=== PATIENT | female | born 1995 | race Caucasian/White ===

== ENCOUNTER 2016-06-06 13:54 | Emergency (ER) | payer SELFPAY ==
--- NOTE | 2016-06-06 14:48 | ER Document Report ---
HPI - HPI Patient complains to provider of: left ear pain Pain Level: 4 Context: 21 yo female c/o left ear pain x 2 days. no fever. Associated Symptoms: None Exacerbated by: Denies Relieved by: Denies Similar symptoms previously: No Recently seen / treated by doctor: No - REPRODUCTIVE Reproductive: DENIES: : - DERM Skin Color: Normal Past Medical History - Social History Smoking Status: Never Smoker Frequency of alcohol use: None Drug Abuse: None Family History: Reviewed & Not Pertinent Patient has suicidal ideation: No Patient has homicidal ideation: No Pulmonary Medical History: Reports: Hx Asthma Renal/ Medical History: Denies: Hx Peritoneal Dialysis - Immunizations Immunizations up to date: Yes Hx Diphtheria, Pertussis, Tetanus Vaccination: Yes Vertical Provider Document - CONSTITUTIONAL Agree With Documented VS: Yes Exam Limitations: No Limitations - INFECTION CONTROL TRAVEL OUTSIDE OF THE [place] IN LAST 30 DAYS: No - HEENT HEENT: Atraumatic, PERRLA. negative: Tympanic Membrane Red - + thick white exudate in left EAC. + painful pinna manipulation. no pre/post auricular tenderness. no mastoid tenderness - NECK Neck: Normal Inspection, Supple - RESPIRATORY Respiratory: Breath Sounds Normal, No Respiratory Distress O2 Sat by Pulse Oximetry: 99 - CARDIOVASCULAR Cardiovascular: Regular Rate, Regular Rhythm - NEURO Level of Consciousness: Awake, Alert - DERM Integumentary: Warm, Dry Course - Re-evaluation Re-evalutation: 06/06/16 14:52 - Vital Signs Vital signs: Temp Pulse Resp BP Pulse Ox 98.2 F 69 16 115/68 99 06/06/16 13:58 06/06/16 13:58 06/06/16 13:58 06/06/16 13:58 06/06/16 13:58 Discharge - Discharge Clinical Impression: Otitis externa Qualifiers: Otitis externa type: unspecified type Laterality: left Chronicity: acute Qualified Code(s): H60.502 - Unspecified acute noninfective otitis externa, left ear Disposition: HOME, SELF-CARE Instructions: Otitis Externa ([facility]), Use of Ear Drops ([facility]), Oral Narcotic Medication ([facility]) Additional Instructions: You have an external ear infection Take meds as prescribed Keep ear completely dry x 7 days Prescriptions: Neomy Sulf/Polymyx B Sulf/Hc [Cortisporin Otic Susp] 4 drop LFT_EAR Q4 #1 bottle Oxycodone HCl/Acetaminophen [Percocet 5-325 mg Tablet] 1 - 2 tab PO ASDIR PRN # 10 tablet PRN Reason: Forms: Return to Work
[2016-06-06 15:28] VITALS: BP 110/70
== END 2016-06-06 15:24 | disposition home or self-care (01) ==
LOC: ER 13:54
DX: H60.502 Unspecified acute noninfective otitis externa, left ear (principal); H92.02 Otalgia, left ear
CPT/HCPCS: 99282

== ENCOUNTER 2016-11-09 19:16 | Emergency (ER) | payer SELFPAY ==
[2016-11-09] MEDS ORDERED: METOCLOPRAMIDE HCL INJ/PF 10 MG/2 ML SDV IV ONE (20:33)
--- NOTE | 2016-11-09 20:34 | ER Document Report ---
ED Medical Screen (RME) - General Chief Complaint: Nausea/Vomiting Stated Complaint: VOMITING Time Seen by Provider: 11/09/16 20:32 Notes: Patient states she is about 9 weeks but has not yet seen an [employer] TE[employer]. She denies any vaginal bleeding or discharge. She does have some diffuse abdominal pain as well as nausea vomiting and low back pain. TRAVEL OUTSIDE OF THE [place] IN LAST 30 DAYS: No - Related Data Allergies/Adverse Reactions: Penicillins Allergy (Intermediate, Verified 11/09/16 20:25) GI upset Home Medications: Current Home Medications No Home Medications 11/09/16 [History] Past Medical History - Social History Chew tobacco use (# tins/day): No Frequency of alcohol use: None Drug Abuse: None Pulmonary Medical History: Reports: Hx Asthma Renal/ Medical History: Denies: Hx Peritoneal Dialysis Surgical Hx: Negative - Immunizations Immunizations up to date: Yes Hx Diphtheria, Pertussis, Tetanus Vaccination: Yes
[2016-11-09 20:48] LABS: APPEARANCE,URINE CLOUDY; BILIRUBIN,URINE NEGATIVE (NEGATIVE); GLUCOSE, URINE NEGATIVE (NEGATIVE); KETONES,URINE 80 mg/dL (NEGATIVE); LEUKOCYTE ESTERASE,URINE LARGE (NEGATIVE); NITRITE,URINE NEGATIVE (NEGATIVE); PROTEIN,URINE 30 mg/dL (NEGATIVE); URINE SPECIFIC GRAVITY 1.027; UROBILINOGEN,URINE NEGATIVE mg/dL (<2.0)
[2016-11-09] MEDS: NORMAL SALINE 1000 ML 1,000 ML IV PRN ×2 (20:50→23:52)
[2016-11-09 21:06] LABS: ABSOLUTE LYMPHOCYTES (AUTO) 1.2 10^3/uL (0.5-4.7); ABSOLUTE MONOCYTES (AUTO) 0.4 10^3/uL (0.1-1.4); ABSOLUTE NEUT (AUTO) 8.4 10^3/uL (1.7-8.2); BASOPHILS % (AUTO) 0.1 % (0-2); EOSINOPHILS % (AUTO) 0.2 % (0-6); HEMATOCRIT 38.8 % (36.0-47.0); HEMOGLOBIN 13.3 g/dL (12.0-15.5); HGB HCT DIFFERENCE 1.1; LYMPHOCYTES % (AUTO) 11.8 % (13-45); MEAN CORPUSCULAR HEMOGLOBIN 28.9 pg (27.0-33.4); MEAN CORPUSCULAR HGB CONC 34.2 g/dL (32.0-36.0); MEAN CORPUSCULAR VOLUME 84 fl (80-97); MONOCYTES % (AUTO) 4.5 % (3-13); RED CELL DISTRIBUTION WIDTH 14.4 % (11.5-14.0); SEGMENTED NEUTROPHILS % (AUTO) 83.4 % (42-78)
[2016-11-09 21:35] LABS: ALANINE AMINOTRANSFERASE 34 U/L (9-52); ALKALINE PHOSPHATASE 58 U/L (38-126); ANION GAP 10 (5-19); ASPARTATE AMINO TRANSFERASE 22 U/L (14-36); BILIRUBIN,DIRECT 0.3 mg/dL (0.0-0.4); BILIRUBIN,TOTAL 0.6 mg/dL (0.2-1.3); BLOOD UREA NITROGEN 5 mg/dL (7-20); CALCIUM 9.8 mg/dL (8.4-10.2); CARBON DIOXIDE 21 mmol/L (22-30); CHLORIDE 107 mmol/L (98-107); CREATININE RESULT 0.48 mg/dL (0.52-1.25); GLUCOSE 79 mg/dL (75-110); SODIUM 137.8 mmol/L (137-145); TOTAL PROTEIN 6.9 g/dL (6.3-8.2)
[2016-11-09] MEDS ORDERED: NORMAL SALINE 1000 ML 1,000 ML IV ONE (23:12)
[2016-11-09] MEDS ORDERED: CEFTRIAXONE INJ 1000 MG VIAL IV ONE (23:12)
--- NOTE | 2016-11-09 23:13 | RADIOLOGY REPORT (SQ) ---
EXAM DESCRIPTION: U/S OB TRANSVAGINAL W/O DOP COMPLETED DATE/TIME: 11/09/2016 10:29 pm REASON FOR STUDY: preg/pain COMPARISON: None. TECHNIQUE: Transvaginal static and realtime grayscale images acquired of the pelvis. Additional marcela cted spectral and color Doppler images recorded. All images stored on PACs. bHCG: Not available LIMITATIONS: None. FINDINGS: FETUS: Living intrauterine . EGA: 8 weeks 5 days CHEN: 06/16/2017 FHR: 168 beats per minute. SUBCHORIONIC BLEED: No SIZE OF BLEED: Not applicable. UTERUS: No masses. No anomalies. CERVICAL LENGTH: 3.6 sign Closed. RIGHT ADNEXA: Right ovary was not visualized. LEFT ADNEXA: Left ovary was not visualized. FREE FLUID: None. OTHER: No other significant finding. IMPRESSION: LIVING INTRAUTERINE . EGA 8 weeks 5 days Trimester of : First - 0 to 13 weeks. TECHNICAL DOCUMENTATION: JOB ID: [id number] [employer]- All Rights Reserved
[2016-11-10] MEDS ORDERED: METOCLOPRAMIDE HCL INJ/PF 10 MG/2 ML SDV IV ONE (00:12)
--- NOTE | 2016-11-10 01:10 | ER Document Report ---
ED General - General Chief Complaint: Nausea/Vomiting Stated Complaint: VOMITING Time Seen by Provider: 11/09/16 20:32 Notes: Patient is a 21-year-old female who presents with complaint of intractable vomiting. She is approximately 9 weeks . She had no fevers. No ultrasound of this as of yet. No dysuria. Normal vaginal discharge. She said very early in she had some spotting after sex but has not had any bleeding since. No other complaints at this time. No abdominal pain. TRAVEL OUTSIDE OF THE [place] IN LAST 30 DAYS: No - Related Data Allergies/Adverse Reactions: Penicillins Allergy (Intermediate, Verified 11/09/16 23:59) GI upset Past Medical History - Social History Smoking Status: Never Smoker Chew tobacco use (# tins/day): No Frequency of alcohol use: None Drug Abuse: None Family History: Reviewed & Not Pertinent Patient has suicidal ideation: No Patient has homicidal ideation: No Pulmonary Medical History: Reports: Hx Asthma Renal/ Medical History: Denies: Hx Peritoneal Dialysis Surgical Hx: Negative - Immunizations Immunizations up to date: Yes Hx Diphtheria, Pertussis, Tetanus Vaccination: Yes Review of Systems - Review of Systems Notes: My Normal Review Basic REVIEW OF SYSTEMS: CONSTITUTIONAL : Denies fever, chills, or sweats. Denies recent illness. RESPIRATORY: Denies cough, cold, or chest congestion. Denies shortness of breath, difficulty breathing, or wheezing. GASTROINTESTINAL: No abdominal pain. Some vomiting. GENITOURINARY: Denies difficulty urinating, painful urination, burning, frequency, or blood in urine. FEMALE GENITOURINARY: Denies vaginal bleeding, abnormal or irregular periods. LMP: Only . MUSCULOSKELETAL: Denies neck or back pain or joint pain or swelling. SKIN: Denies rash or skin lesions. NEUROLOGICAL: Denies altered mental status or loss of consciousness. Denies headache. Denies weakness or paralysis or loss of use of either side. Denies problems with gait or speech. Denies sensory or motor loss. ALL OTHER SYSTEMS REVIEWED AND NEGATIVE. Physical Exam - Vital signs Vitals: Temp Pulse Resp BP Pulse Ox 98.5 F 80 16 105/77 100 11/09/16 20:11 11/09/16 20:11 11/09/16 20:11 11/09/16 20:11 11/09/16 20:11 - Notes Notes: General Appearance: Well nourished, alert, cooperative, no acute distress, no obvious discomfort. Well-appearing. Vitals: reviewed, See vital signs table. Head: no swelling or tenderness to the head Eyes: PERRL, EOMI, Conjuctiva clear Mouth: No decreasd moisture Neck: Supple, no neck tenderness, No thyromegaly Lungs: No wheezing, No rales, No rhonci, No accessory muscle use, good air exchange bilaterally. Heart: Normal rate, Regular rythm, No murmur, no rub Abdomen: Normal BS, soft, No rigidity, No producible abdominal tenderness to palpation, No guarding, no rebound, no abdominal masses, no organomegaly Extremities: strength 5/5 in all extremities, good pulses in all extremities, no swelling or tenderness in the extremities, no edema. Skin: warm, dry, appropriate color, no rash Neuro: speech clear, oriented x 3, normal affect, responds appropriately to questions. Course - Re-evaluation Re-evalutation: 11/10/16 05:54 Patient's nausea is much improved with the Reglan. I did give her 2 L of fluids. She feels improved. Her urinalysis does show evidence of a UTI. I will place on Macrobid. I did give her Rocephin here. I encouraged her return to ER if she has fevers, recurrent vomiting, or she feels unwell. I encouraged her follow-up closely with her deputy sheriff generalist/bailiff. Patient agrees with plan and will be discharged home. Dictation of this chart was performed using voice recognition software; therefore, there may be some unintended grammatical errors. - Vital Signs Vital signs: Temp Pulse Resp BP Pulse Ox 98.5 F 75 18 115/57 L 100 11/09/16 20:11 11/10/16 01:16 11/10/16 01:16 11/10/16 01:16 11/10/16 01:16 - Laboratory Result Diagrams: 11/09/16 20:50 11/09/16 20:50 Laboratory results interpreted by me: 11/09/16 11/09/16 11/09/16 20:12 20:50 20:50 RDW 14.4 H Seg Neutrophils % 83.4 H Lymphocytes % 11.8 L Absolute Neutrophils 8.4 H Carbon Dioxide 21 L BUN 5 L Creatinine 0.48 L Beta HCG, Quant 524864.00 H Urine Protein 30 H Urine Ketones 80 H Ur Leukocyte Esterase LARGE H Discharge - Discharge Clinical Impression: Hyperemesis gravidarum UTI (urinary tract infection) Qualifiers: Urinary tract infection type: site unspecified Hematuria presence: without hematuria Qualified Code(s): N39.0 - Urinary tract infection, site not specified Condition: Good Disposition: HOME, SELF-CARE Additional Instructions: Your urinalysis suggest that you have a mild urinary tract infection. Urinary tract infections and can cause your nausea vomiting to become worse. Please drink lots of clear liquids. Please follow with your deputy sheriff generalist/bailiff for close reevaluation. Please take antibiotics as prescribed. Please take the nausea medicine as prescribed. Please return to the ER if you have intractable vomiting despite the nausea medicine, fevers, or feel unwell. Prescriptions: Metoclopramide HCl [Reglan 10 mg Tablet] 1 tab PO ASDIR PRN #25 tablet PRN Reason: Nitrofurantoin/Nitrofuran Mac [Macrobid 100 mg Capsule] 1 tab PO BID #14 capsule Forms: Return to Work
[2016-11-10 01:19] VITALS: BP 115/57
== END 2016-11-10 01:19 | disposition home or self-care (01) ==
LOC: ER 19:16
DX: O23.41 Unspecified infection of urinary tract in pregnancy, first trimester (principal); O21.9 Vomiting of pregnancy, unspecified; Z3A.09 9 weeks gestation of pregnancy; Z88.0 Allergy status to penicillin
CPT/HCPCS: 96376; 99283; 96361; 96375; 96365; 36415; 84702; 85025; 80053; 81001; 76817; J2765 ×2; J0696; J7030

== ENCOUNTER 2016-11-18 12:35 | Emergency (ER) | payer SELFPAY ==
[2016-11-18] MEDS ORDERED: PROMETHAZINE HCL INJ 25 MG/1 ML VIAL IV ONE (13:20)
[2016-11-18] MEDS ORDERED: NORMAL SALINE 1000 ML 1,000 ML IV PRN (13:20)
--- NOTE | 2016-11-18 13:22 | ER Document Report ---
ED General - General Chief Complaint: Nausea/Vomiting Stated Complaint: VOMITING Time Seen by Provider: 11/18/16 13:20 Mode of Arrival: Ambulatory Information source: Patient Notes: 21-year-old female who is 10 weeks presents with complaints of nausea vomiting multiple times this morning. Patient notes she was here last week was given Reglan but was still nauseous. Patient denies any vaginal bleeding abdominal pain or any other concerns TRAVEL OUTSIDE OF THE [place] IN LAST 30 DAYS: No - HPI Onset: This morning Onset/Duration: Sudden Quality of pain: No pain Severity: Moderate Pain Level: Denies Associated symptoms: Nausea, Vomiting Exacerbated by: Denies Relieved by: Denies Similar symptoms previously: Yes Recently seen / treated by doctor: Yes - Related Data Allergies/Adverse Reactions: Penicillins Allergy (Intermediate, Verified 11/18/16 12:48) GI upset Past Medical History - Social History Smoking Status: Never Smoker Cigarette use (# per day): No Chew tobacco use (# tins/day): No Smoking Education Provided: No Frequency of alcohol use: None Drug Abuse: None Family History: Reviewed & Not Pertinent Pulmonary Medical History: Reports: Hx Asthma Renal/ Medical History: Denies: Hx Peritoneal Dialysis Surgical Hx: Negative - Immunizations Immunizations up to date: Yes Hx Diphtheria, Pertussis, Tetanus Vaccination: Yes Review of Systems - Review of Systems Notes: REVIEW OF SYSTEMS: CONSTITUTIONAL : Denies fever, chills, or sweats. Denies recent illness. EENT: Denies eye, ear, throat, or mouth pain or symptoms. Denies nasal or sinus congestion or discharge. Denies throat, tongue, or mouth swelling or difficulty swallowing. CARDIOVASCULAR: Denies chest pain. Denies palpitations or racing or irregular heart beat. Denies ankle edema. RESPIRATORY: Denies cough, cold, or chest congestion. Denies shortness of breath, difficulty breathing, or wheezing. GASTROINTESTINAL: Admits nausea vomiting GENITOURINARY: Denies difficulty urinating, painful urination, burning, frequency, blood in urine, or discharge. FEMALE GENITOURINARY: Denies vaginal bleeding, heavy or abnormal periods, irregular periods. Denies vaginal discharge or odor. MUSCULOSKELETAL: Denies back or neck pain or stiffness. Denies joint pain or swelling. SKIN: Denies rash, lesions or sores. HEMATOLOGIC : Denies easy bruising or bleeding. LYMPHATIC: Denies swollen, enlarged glands. NEUROLOGICAL: Denies confusion or altered mental status. Denies passing out or loss of consciousness. Denies dizziness or lightheadedness. Denies headache. Denies weakness or paralysis or loss of use of either side. Denies problems with gait or speech. Denies sensory loss, numbness, or tingling. Denies seizures. PSYCHIATRIC: Denies anxiety or stress. Denies depression, suicidal ideation, or homicidal ideation. ALL OTHER SYSTEMS REVIEWED AND NEGATIVE. PHYSICAL EXAMINATION: GENERAL: Well-appearing, well-nourished and in no acute distress. HEAD: Atraumatic, normocephalic. EYES: Pupils equal round and reactive to light, extraocular movements intact, conjunctiva are normal. ENT: Nares patent, oropharynx clear without exudates. Moist mucous membranes. NECK: Normal range of motion, supple without lymphadenopathy LUNGS: Breath sounds clear to auscultation bilaterally and equal. No wheezes rales or rhonchi. HEART: Regular rate and rhythm without murmurs ABDOMEN: Soft, nontender, nondistended abdomen. No guarding, no rebound. No masses appreciated. Female : deferred Musculoskeletal: Normal range of motion, no pitting or edema. No cyanosis. NEUROLOGICAL: Cranial nerves grossly intact. Normal speech, normal gait. Normal sensory, motor exams PSYCH: Tearful SKIN: Warm, Dry, normal turgor, no rashes or lesions noted. Dictation was performed using [employer] voice recognition software Physical Exam - Vital signs Vitals: Temp Pulse BP Pulse Ox 97.9 F 101 H 132/90 H 99 11/18/16 12:46 11/18/16 12:46 11/18/16 12:46 11/18/16 12:46 Course - Re-evaluation Re-evalutation: 11/18/16 13:22 IV access will be obtained patient will be given Phenergan 11/18/16 14:49 Patient was given IV fluids notes symptoms have improved significantly will discharge home with Phenergan After performing a Medical Screening Examination, I estimate there is LOW risk for ACUTE APPENDICITIS, BOWEL OBSTRUCTION, ACUTE CHOLECYSTITIS, PERFORATED DIVERTICULITIS, INCARCERATED HERNIA, PANCREATITIS, PELVIC INFLAMMATORY DISEASE, PERFORATED ULCER, ECTOPIC , or TUBO-OVARIAN ABSCESS, thus I consider the discharge disposition reasonable. Also, there is no evidence or peritonitis , sepsis, or toxicity. I have reevaluated this patient multiple times and no significant life threatening changes are noted. The patient and I have discussed the diagnosis and risks, and we agree with discharging home with close follow-up with the understanding that symptoms and presentations can change. We also discussed returning to the Emergency Department immediately if new or worsening symptoms occur. We have discussed the symptoms which are most concerning (e.g., bloody stool, fever, changing or worsening pain, vomiting) that necessitate immediate return. - Vital Signs Vital signs: Temp Pulse Resp BP Pulse Ox 97.9 F 101 H 132/90 H 99 11/18/16 12:46 11/18/16 12:46 11/18/16 12:46 11/18/16 12:46 - Laboratory Result Diagrams: 11/18/16 13:35 11/18/16 13:35 Laboratory results interpreted by me: 11/18/16 11/18/16 11/18/16 13:35 13:35 13:35 WBC 11.4 H Seg Neutrophils % 83.1 H Lymphocytes % 11.3 L Absolute Neutrophils 9.5 H Sodium 136.5 L Carbon Dioxide 20 L Calcium 10.6 H Direct Bilirubin 0.5 H Urine Protein 100 H Urine Ketones 80 H Urine Urobilinogen 4.0 H Ur Leukocyte Esterase MODERATE H Discharge - Discharge Clinical Impression: Hyperemesis gravidarum, Ketonuria Condition: Stable Disposition: HOME, SELF-CARE Instructions: Vomiting ([facility]) Additional Instructions: Follow up with your physician tomorrow for further care or return to the ED IMMEDIATELY if symptoms worsen or new concerns occur. If you cannot afford to follow up with your primary care physician a list of low cost clinics have been provided at the end of your discharge papers as well. Prescriptions: Promethazine HCl [Phenergan 25 mg Tablet] 1 - 2 tab PO Q6H PRN #25 tablet PRN Reason:
[2016-11-18 13:53] LABS: ABSOLUTE EOSINOPHILS # (AUTO) 0.1 10^3/uL (0.0-0.6); ABSOLUTE LYMPHOCYTES (AUTO) 1.3 10^3/uL (0.5-4.7); ABSOLUTE MONOCYTES (AUTO) 0.5 10^3/uL (0.1-1.4); ABSOLUTE NEUT (AUTO) 9.5 10^3/uL (1.7-8.2); BASOPHILS % (AUTO) 0.2 % (0-2); EOSINOPHILS % (AUTO) 0.8 % (0-6); HEMATOCRIT 42.3 % (36.0-47.0); HEMOGLOBIN 14.5 g/dL (12.0-15.5); HGB HCT DIFFERENCE 1.2; LYMPHOCYTES % (AUTO) 11.3 % (13-45); MEAN CORPUSCULAR HEMOGLOBIN 28.4 pg (27.0-33.4); MEAN CORPUSCULAR HGB CONC 34.2 g/dL (32.0-36.0); MEAN CORPUSCULAR VOLUME 83 fl (80-97); MONOCYTES % (AUTO) 4.6 % (3-13); SEGMENTED NEUTROPHILS % (AUTO) 83.1 % (42-78); WHITE BLOOD COUNT 11.4 10^3/uL (4.0-10.5)
[2016-11-18 14:10] LABS: ALANINE AMINOTRANSFERASE 30 U/L (9-52); ALBUMIN 4.8 g/dL (3.5-5.0); ALKALINE PHOSPHATASE 66 U/L (38-126); ANION GAP 15 (5-19); ASPARTATE AMINO TRANSFERASE 22 U/L (14-36); BILIRUBIN,DIRECT 0.5 mg/dL (0.0-0.4); BILIRUBIN,TOTAL 0.8 mg/dL (0.2-1.3); BLOOD UREA NITROGEN 10 mg/dL (7-20); CALCIUM 10.6 mg/dL (8.4-10.2); CARBON DIOXIDE 20 mmol/L (22-30); CHLORIDE 102 mmol/L (98-107); CREATININE RESULT 0.53 mg/dL (0.52-1.25); GLUCOSE 87 mg/dL (75-110); POTASSIUM 3.9 mmol/L (3.6-5.0); SODIUM 136.5 mmol/L (137-145); TOTAL PROTEIN 8.1 g/dL (6.3-8.2)
[2016-11-18 14:17] LABS: APPEARANCE,URINE SLIGHTLY-CLOUDY; BILIRUBIN,URINE NEGATIVE (NEGATIVE); GLUCOSE, URINE NEGATIVE (NEGATIVE); KETONES,URINE 80 mg/dL (NEGATIVE); LEUKOCYTE ESTERASE,URINE MODERATE (NEGATIVE); NITRITE,URINE NEGATIVE (NEGATIVE); PROTEIN,URINE 100 mg/dL (NEGATIVE); URINE SPECIFIC GRAVITY 1.033
[2016-11-18 14:57] VITALS: BP 150/95
== END 2016-11-18 14:55 | disposition home or self-care (01) ==
LOC: ER 12:35
DX: O21.0 Mild hyperemesis gravidarum (principal); R82.4 Acetonuria; Z3A.10 10 weeks gestation of pregnancy; Z88.0 Allergy status to penicillin
CPT/HCPCS: 99284; 96361; 96374; 36415; 85025; 80053; 81001; J2550; J7030

== ENCOUNTER 2017-02-25 17:47 | Emergency (ER) | payer SELFPAY ==
[2017-02-25] MEDS ORDERED: NORMAL SALINE 1000 ML 1,000 ML IV ONE ×2 (18:24→22:55)
--- NOTE | 2017-02-25 18:26 | ER Document Report ---
ED Medical Screen (RME) - General Chief Complaint: Fainting Stated Complaint: HEAD INJURY, DIZZY Time Seen by Provider: 02/25/17 18:19 Notes: 21-year-old female approximately 23 weeks gestation here with complaints of syncope that occurred just prior to arrival. She states that she was standing in the store looking at some products when she became lightheaded and passed out falling hitting her head on the floor. She was able to regain consciousness shortly thereafter with no vomiting nausea diarrhea. She denies any belkys-ictal chest pain shortness of breath headache vision changes numbness tingling weakness. She has a prior history of syncope in the past. EXAM Strength 5/5 with intact sensation all extremities Mild tenderness to palpation of scalp soft tissue swelling occipital scalp TRAVEL OUTSIDE OF THE [place] IN LAST 30 DAYS: No - Related Data Allergies/Adverse Reactions: Penicillins Allergy (Intermediate, Verified 02/25/17 17:48) GI upset Past Medical History Pulmonary Medical History: Reports: Hx Asthma Renal/ Medical History: Denies: Hx Peritoneal Dialysis - Immunizations Immunizations up to date: Yes Hx Diphtheria, Pertussis, Tetanus Vaccination: Yes Physical Exam - Vital signs Vitals: Temp Pulse Resp BP Pulse Ox 97.4 F 97 16 121/71 100 02/25/17 18:08 02/25/17 18:08 02/25/17 18:08 02/25/17 18:08 02/25/17 18:08 Course - Vital Signs Vital signs: Temp Pulse Resp BP Pulse Ox 97.4 F 97 16 121/71 100 02/25/17 18:08 02/25/17 18:08 02/25/17 18:08 02/25/17 18:08 02/25/17 18:08
[2017-02-25 19:20] LABS: ABSOLUTE LYMPHOCYTES (AUTO) 0.9 10^3/uL (0.5-4.7); ABSOLUTE MONOCYTES (AUTO) 0.6 10^3/uL (0.1-1.4); ABSOLUTE NEUT (AUTO) 12.6 10^3/uL (1.7-8.2); BASOPHILS % (AUTO) 0.1 % (0-2); EOSINOPHILS % (AUTO) 0.3 % (0-6); HEMATOCRIT 31.9 % (36.0-47.0); HEMOGLOBIN 10.9 g/dL (12.0-15.5); LYMPHOCYTES % (AUTO) 6.1 % (13-45); MEAN CORPUSCULAR HEMOGLOBIN 29.8 pg (27.0-33.4); MEAN CORPUSCULAR HGB CONC 34.2 g/dL (32.0-36.0); MEAN CORPUSCULAR VOLUME 87 fl (80-97); MONOCYTES % (AUTO) 4.1 % (3-13); PLATELET COUNT 277 10^3/uL (150-450); RED BLOOD COUNT 3.67 10^6/uL (3.72-5.28); RED CELL DISTRIBUTION WIDTH 14.3 % (11.5-14.0); SEGMENTED NEUTROPHILS % (AUTO) 89.4 % (42-78); TOTAL CELLS COUNTED % (AUTO) 100 %; WHITE BLOOD COUNT 14.1 10^3/uL (4.0-10.5)
[2017-02-25 19:44] LABS: ANION GAP 10 (5-19); BLOOD UREA NITROGEN 4 mg/dL (7-20); CALCIUM 9.8 mg/dL (8.4-10.2); CARBON DIOXIDE 24 mmol/L (22-30); CHLORIDE 104 mmol/L (98-107); GLUCOSE 62 mg/dL (75-110); MAGNESIUM 1.6 mg/dL (1.6-2.3); PHOSPHORUS 3.3 mg/dL (2.5-4.5); POTASSIUM 3.7 mmol/L (3.6-5.0); SODIUM 137.8 mmol/L (137-145)
[2017-02-25] MEDS ORDERED: ACETAMINOPHEN 325 MG TABLET PO ONE (22:56)
--- NOTE | 2017-02-25 23:07 | ER Document Report ---
ED General - General Chief Complaint: Fainting Stated Complaint: HEAD INJURY, DIZZY Time Seen by Provider: 02/25/17 18:19 Notes: Patient is a 19-year-old female who is 23 weeks who presents with complaint of syncopal episode today while at the store. She said she felt warm and hot all over and then passed out. She says that she she did not have a headache before passing out. She says she has a slight headache. She did fall and hit the back of her head. She says that she still feels intermittently dizzy. No chest pain. She said she has some chronic intermittent shortness of breath but that is related to asthma and currently does not feel short of breath at this time. She says she has been having a lot of vomiting throughout her . She denies any recent fevers or infections. No abnormal vaginal bleeding or discharge. No other complaints at this time. No leg pain or leg swelling. TRAVEL OUTSIDE OF THE [place] IN LAST 30 DAYS: No - Related Data Allergies/Adverse Reactions: Penicillins Allergy (Intermediate, Verified 02/25/17 17:48) GI upset Past Medical History - Social History Smoking Status: Never Smoker Chew tobacco use (# tins/day): No Frequency of alcohol use: None Drug Abuse: None Family History: Reviewed & Not Pertinent Patient has suicidal ideation: No Patient has homicidal ideation: No Pulmonary Medical History: Reports: Hx Asthma Renal/ Medical History: Denies: Hx Peritoneal Dialysis - Immunizations Immunizations up to date: Yes Hx Diphtheria, Pertussis, Tetanus Vaccination: Yes Review of Systems - Review of Systems Notes: My Normal Review Basic REVIEW OF SYSTEMS: CONSTITUTIONAL : Denies fever, chills, or sweats. Denies recent illness. EENT: Denies eye, ear, throat, or mouth pain or symptoms. Denies nasal or sinus congestion. CARDIOVASCULAR: Denies chest pain. RESPIRATORY: Denies cough, cold, or chest congestion. Denies shortness of breath, difficulty breathing, or wheezing. GASTROINTESTINAL: Denies abdominal pain. Recurrent vomiting. GENITOURINARY: Denies difficulty urinating, painful urination, burning, frequency, or blood in urine. FEMALE GENITOURINARY: Denies vaginal bleeding, abnormal or irregular periods. LMP: MUSCULOSKELETAL: Denies neck or back pain or joint pain or swelling. SKIN: Denies rash or skin lesions. NEUROLOGICAL: Syncopal episode. Has a headache. Denies weakness or paralysis or loss of use of either side. Denies problems with gait or speech. Denies sensory or motor loss. ALL OTHER SYSTEMS REVIEWED AND NEGATIVE. Physical Exam - Vital signs Vitals: Temp Pulse Resp BP Pulse Ox 97.4 F 97 16 121/71 100 02/25/17 18:08 02/25/17 18:08 02/25/17 18:08 02/25/17 18:08 02/25/17 18:08 - Notes Notes: General Appearance: Well nourished, alert, cooperative, no acute distress, no obvious discomfort. Well-appearing. Vitals: reviewed, See vital signs table. Head: no swelling or tenderness to the head Eyes: PERRL, EOMI, Conjuctiva clear Mouth: No decreasd moisture Neck: Supple, no neck tenderness, No thyromegaly Lungs: No wheezing, No rales, No rhonci, No accessory muscle use, good air exchange bilaterally. Heart: Normal rate, Regular rythm, No murmur, no rub Abdomen: Normal BS, soft, No rigidity, No abdominal tenderness, No guarding, no rebound, no abdominal masses, no organomegaly Extremities: strength 5/5 in all extremities, good pulses in all extremities, no swelling or tenderness in the extremities, no edema. Skin: warm, dry, appropriate color, no rash Neuro: speech clear, oriented x 3, normal affect, responds appropriately to questions. Cranial nerves II through XII are intact. Distal sensation intact. Patient moves all extremities without difficulty. Course - Re-evaluation Re-evalutation: 02/26/17 06:01 Patient is feeling much improved after second liter. She is able get up and walk to bathroom felt without feeling dizzy or unwell. She says she feels back to normal. She does have a little bit of urinary tract infection for which will place her on Macrobid. This is most likely why she had some increased nausea and vomiting recently. She suspect that single episode is related to urinary tract infection as well as her being 23 weeks with a lot of recurrent vomiting and probably some dehydration. She is feeling much improved after IV fluids. I do not suspect PE and that she has no leg pain or leg swelling, no tachycardia, no tachypnea, no hypoxemia. At this time for the patient safe to be discharged home. I strongly encouraged her return to ER immediately if she has any difficulty breathing, chest pain, recurrent syncope, recurrent vomiting, or she feels unwell. Patient agrees with plan will be discharged home. Dictation of this chart was performed using voice recognition software; therefore, there may be some unintended grammatical errors. - Vital Signs Vital signs: Temp Pulse Resp BP Pulse Ox 97.2 F 82 18 128/76 H 98 02/26/17 02:34 02/26/17 02:34 02/26/17 02:34 02/26/17 02:34 02/26/17 02:34 - Laboratory Result Diagrams: 02/25/17 19:00 02/25/17 19:00 Laboratory results interpreted by me: 02/25/17 02/25/17 02/25/17 19:00 19:00 19:00 WBC 14.1 H RBC 3.67 L Hgb 10.9 L Hct 31.9 L RDW 14.3 H Seg Neutrophils % 89.4 H Lymphocytes % 6.1 L Absolute Neutrophils 12.6 H BUN 4 L Creatinine 0.49 L Glucose 62 L Urine Protein 30 H Ur Leukocyte Esterase MODERATE H - EKG Interpretation by Me Additional EKG results interpreted by me: 02/25/17 23:06 EKG is reviewed and interpreted by me. EKG shows normal sinus rhythm with a rate of [address] segment elevation or depression. T-wave inversion in lead III, V3, and V2. No Q waves in lead III. ID interval, QRS duration, QTc intervals are within normal range. No old EKG available for comparison. Discharge - Discharge Clinical Impression: Syncope Qualifiers: Syncope type: unspecified Qualified Code(s): R55 - Syncope and collapse Vomiting Qualifiers: Vomiting type: unspecified Vomiting Intractability: unspecified Nausea presence : with nausea Qualified Code(s): R11.2 - Nausea with vomiting, unspecified UTI (urinary tract infection) Qualifiers: Urinary tract infection type: site unspecified Hematuria presence: without hematuria Qualified Code(s): N39.0 - Urinary tract infection, site not specified Condition: Good Disposition: HOME, SELF-CARE Additional Instructions: Please drink lots of liquids and stay well hydrated. Please take the antibiotics as prescribed. Please return to the ER immediately if you have intractable vomiting, fevers, or feel unwell. Please follow up with your OB doctor in 1-2 days. Prescriptions: Nitrofurantoin/Nitrofuran Mac [Macrobid 100 mg Capsule] 1 tab PO BID #14 capsule Ondansetron HCl [Zofran] 4 mg PO Q4 PRN #20 tablet PRN Reason: nausea Forms: Return to Work
[2017-02-26 00:23] LABS: APPEARANCE,URINE SLIGHTLY-CLOUDY; BILIRUBIN,URINE NEGATIVE (NEGATIVE); COLOR,URINE YELLOW; GLUCOSE, URINE NEGATIVE (NEGATIVE); KETONES,URINE NEGATIVE (NEGATIVE); LEUKOCYTE ESTERASE,URINE MODERATE (NEGATIVE); NITRITE,URINE NEGATIVE (NEGATIVE); PROTEIN,URINE 30 mg/dL (NEGATIVE); URINE SPECIFIC GRAVITY 1.015; UROBILINOGEN,URINE NEGATIVE mg/dL (<2.0)
[2017-02-26] MEDS ORDERED: NITROFURANTOIN MONOHYD/M-CRYST 100 MG CAPSULE PO ONE (01:53)
[2017-02-26 02:35] VITALS: BP 128/76
--- NOTE | 2017-02-26 09:33 | EKG REPORT ---
SEVERITY:- NORMAL ECG - SINUS RHYTHM : Confirmed by: Edward Arzola MD 26-Feb-2017 09:33:20
== END 2017-02-26 02:33 | disposition home or self-care (01) ==
LOC: ER 17:47
DX: N39.0 Urinary tract infection, site not specified (principal); R55 Syncope and collapse; R11.2 Nausea with vomiting, unspecified; S09.90XA Unspecified injury of head, initial encounter; Z3A.23 23 weeks gestation of pregnancy; R51 Headache; R06.02 Shortness of breath; W19.XXXA Unspecified fall, initial encounter
CPT/HCPCS: 93005; 99284; 96360; 96361; 36415; 87086; 82962; 83735; 84100; 85025; 80048; 81001; 93010; J7030 ×2; J8499